=== PATIENT | female | born 1975 | race Hispanic/Latino ===

== ENCOUNTER 2016-09-14 23:19 | Inpatient (IN) | payer MEDICAID, OTHER ==
[2016-09-14 23:19] VITALS: BMI 25.6
--- NOTE | 2016-09-15 00:37 | C.PDOC ---
History Of Present Illness 40 year old female with a Hx of ETOH abuse who presents to the ER stating she has SI. Patient was just [place] [facility] [place] same complaint. Patient is know to psych services and is seen frequently; denies physical complaints at this time. Chief Complaint (Nursing): Psychiatric Evaluation History Per: Patient History/Exam Limitations: no limitations Onset/Duration Of Symptoms: Hrs Current Symptoms Are (Timing): Still Present Suicide/Self Injury Attempted (Context): None Modifying Factor(s): None Associated Symptoms: Suicidal Thoughts. denies: Depression, Suicidal Plan Involuntary Hold By: None Recent travel outside of the [place]: No Past Medical History Reviewed: Historical Data, Nursing Documentation, Vital Signs Vital Signs: Last Vital Signs Temp 99.1 F 09/14/16 23:25 Pulse 83 09/15/16 04:19 Resp 16 09/15/16 04:19 BP 124/76 09/15/16 04:19 Pulse Ox 98 09/15/16 04:19 - Medical History PMH: Anxiety, Bipolar Disorder, Depression, Hepatitis (C, with cirrhosis and liver failure), Personality Disorder Surgical History: Back Surgery (neck abcess) - [facility] Procedures ALCOHOL DETOXIFICATION (08/23/14) DETOXIFICATION SERVICES FOR SUBSTANCE ABUSE TREATMENT (01/15/16) GROUP BRANCH OPERATIONS COORDINATOR FOR SUBSTANCE ABUSE TREATMENT, PSYCHOEDUCATION (01/15/16) INDIV PSYCHOTHERAPY FOR SUBSTANCE ABUSE, BEHAVIORAL (11/20/14) INDIVID PSYCHOTHERAP NEC (06/02/14) INJECT/INFUSE NEC (08/19/14) OTHER GROUP THERAPY (06/02/14) PSYCHIA INTERV/EVAL NEC (09/05/13) PSYCHIAT DRUG THERAP NEC (03/26/12) VACCINATION/INNOCULA NEC (03/26/14) Family History: States: Unknown Family Hx - Social History Hx Tobacco Use: Yes Hx Alcohol Use: Yes Hx Substance Use: No - Immunization History Hx Tetanus Toxoid Vaccination: No Hx Influenza Vaccination: No Hx Pneumococcal Vaccination: No Review Of Systems Constitutional: Negative for: Fever, Chills Gastrointestinal: Negative for: Nausea, Vomiting, Diarrhea Psych: Positive for: Suicidal ideation Physical Exam - Physical Exam Appears: Non-toxic Skin: Normal Color, Warm, Dry Head: Atraumatic, Normacephalic Oral Mucosa: Moist Chest: Symmetrical, No Tenderness Cardiovascular: Rhythm Regular, No Murmur Respiratory: Normal Breath Sounds, No Rales, No Rhonchi, No Wheezing Gastrointestinal/Abdominal: Soft, No Tenderness Neurological/Psych: Oriented x3, Normal Speech, Normal Cognition ED Course And Treatment - Laboratory Results Result Diagrams: 09/15/16 01:01 09/15/16 01:01 ECG: Interpreted By Me, Viewed By Me ECG Rhythm: Sinus Rhythm, 1st Degree HB ECG Interpretation: Normal, No Acute Changes Interpretation Of ECG: NSR with 1ST degree block, normal tracings Rate From EC O2 Sat by Pulse Oximetry: 98 (Room air) Pulse Ox Interpretation: Normal Progress Note: Patient was seen and evaluated by Crisis, she denies suicidal ideation when being assessed by them, 1:1 not needed. ED OBSERVATION Date of observation admission: 09/15/16 Time of observation admission: 00:24 - Observation admission statement Patient is being placed in observation because:: Pending Crisis evaluation in the morning. - Goals of Observation Goals of observation are:: Crisis evaluation Disposition Counseled Patient/Family Regarding: Diagnosis - Disposition Disposition Time: 07:00 Condition: STABLE - Clinical Impression Clinical Impression: Suicidal ideation - Scribe Statement The provider has reviewed the documentation as recorded by the Scribe Marino Rosado All medical record entries made by the Scribe were at my direction and personally dictated by me. I have reviewed the chart and agree that the record accurately reflects my personal performance of the history, physical exam, medical decision making, and the department course for this patient. I have also personally directed, reviewed, and agree with the discharge instructions and disposition.
[2016-09-15 01:16] LABS: ALBUMIN 3.7 g/dL (3.5-5.0); BASO % 0.8 % (0.0-2.0); EOS # 0.2 K/uL (0.0-0.7); EOS % 3.6 % (0.0-4.0); HEMOGLOBIN 10.5 g/dL (11.0-16.0); LYMPH # 2.2 K/uL (1.0-4.3); LYMPH % 42.2 % (20.0-40.0); MEAN CELL VOLUME 87.9 fL (81.0-99.0); MEAN CORPUSCULAR HEMOGLOBIN 28.6 pg (27.0-31.0); MEAN CORPUSCULAR HGB CONC 32.5 g/dL (33.0-37.0); MEAN PLATELET VOLUME 8.5 fL (7.2-11.7); MONO # 0.5 K/uL (0.0-0.8); MONO % 10.5 % (0.0-10.0); NEUT # 2.2 K/uL (1.8-7.0); NEUT % 42.9 % (50.0-75.0); NRBC % 0.1 % (0.0-2.0); RBC 3.68 Mil/uL (3.80-5.20); RED CELL DISTRIBUTION WIDTH 17.9 % (11.5-14.5); WHITE BLOOD COUNT 5.2 K/uL (4.8-10.8)
[2016-09-15 01:18] LABS: GFR AFRICAN-AMERICAN > 60; GFR NON-AFRICAN AMERICAN > 60
[2016-09-15 01:19] LABS: ALB/GLOB RATIO 0.9 (1.0-2.1); ALT/SGPT 72 U/L (9-52); AST/SGOT 86 U/L (14-36); BLOOD UREA NITROGEN 12 mg/dL (7-17); CALCIUM 8.6 mg/dl (8.6-10.4); SQUAMOUS EPITHIAL 34 /hpf (0-5); URINE BACTERIA FEW (<OCC); URINE BILIRUBIN 1+ (NEGATIVE); URINE BLOOD 2+ (NEGATIVE); URINE CLARITY Hazy (Clear); URINE GLUCOSE (UA) NORMAL (Normal); URINE LEUKOCYTE ESTERASE 2+ Leu/uL (Negative); URINE NITRATE NEGATIVE (NEGATIVE); URINE PROTEIN 2+ mg/dL (NEGATIVE)
[2016-09-15 01:23] LABS: URINE COLOR YELLOW (YELLOW)
[2016-09-15 01:44] LABS: BARBITURATES, UR NEGATIVE (NEGATIVE)
[2016-09-15 01:46] LABS: OPIATES, UR NEGATIVE (NEGATIVE)
[2016-09-15 01:47] LABS: PHENCYCLIDINE, UR NEGATIVE (NEGATIVE)
[2016-09-15 01:56] LABS: BENZODIAZEPINES, UR POSITIVE (NEGATIVE)
[2016-09-15] MEDS ORDERED: Potassium Chloride 20 mEq ER Tab PO STA (02:26)
[2016-09-15] MEDS ORDERED: Potassium Chloride 20 mEq ER Tab PO ONE (02:37)
[2016-09-15 11:25] VITALS: O2SAT 97
[2016-09-15] MEDS ORDERED: Pneumococcal 23-Valent Vaccine IM ONE (12:21)
--- NOTE | 2016-09-15 12:38 | PCM.BM ---
<Paradise Goel - Last Filed: 09/15/16 12:36> Treatment Plan Problems - Problems identified on initial assessmt Depression Date Initiated: 09/15/16 Time Initiated: 12:36 Assessment reference: NA Status: Active Alcohol Abuse Date Initiated: 09/15/16 Time Initiated: 12:37 Assessment reference: NA Status: Active Treatment assets and liabiliti Patient Assests: cooperative, ADL independent Patient Liabilities: financial problems, poor support system, substance abuse ( alcohol; benzo) - Milieu Protocol Maintain good personal hygiene: daily Encourage regular showers, daily Assist patient to perform ADL's, every shift Remind patient to perform daily oral care Maintain personal safety: daily Educate patient to report safety concerns to staff, every shift Monitor environment for contraband/sharps Medication safety: Monitor for expected outcome, potential side effects: every shift, Assess barriers to learning: daily, Assess readiness for medication education: daily <Sherice Siegel - Last Filed: 09/17/16 11:29> Family Contact Family involvement: Family/SO is involved Family contact: Patient declines to allow family contact at present - Goals for Treatment Patient goals for treatment: "I need help with my medication." Discharge/Continuing Care - Education Needs Education Needs: Patient Medication, Patient Coping Skills - Discharge Discharge Criteria: Tolerates medication w/o severe side effects, Free of Suicidal thoughts Discharge to:: [facility] - Treatment Team Participation Discussed with Family/SO: Yes Was Patient/Family/SO present at Treatment Team Meeting: No <Francisco Santamaria - Last Filed: 09/17/16 11:34> - Diagnosis (1) Depression Status: Acute Interventions: 09/17/16 11:34 Attend groups take meds (2) Alcohol use disorder, severe, dependence Status: Acute Interventions: 09/17/16 11:35 Attend groups Take meds <Glen Torres - Last Filed: 09/17/16 12:12>
--- NOTE | 2016-09-15 19:13 | PCM.PSYCH ---
Initial Psychiatric Evaluation - Initial Psychiatric Evaluation Type of Admission: Voluntary Chief Complaint (in patient's own words): I/m depressed and have suicidal thoughts Patient's Reaction to Hospitalization: Pt reported that she is feeling safe History of Present Illness and Precipitating Events: This is 40 year old female with psychiatric history of depression and alcohol abuse. She was admitted to the unit for worsening of her depression for last 2 weeks. Ms. Vivas stated that she had depressed mood for more than 3 weeks and it is 7/10 on the scale of depression associated with financial stressor, and homeless issues, low self esteem, and low level of energy. She reported that she was thinking to commit suicide by jumping into river, but does not want to do it because she is afraid of . she reported that had relapse on drinking vodka around 3 weeks ago. CAGE questionaire was positive. Presently although she reported etoh withdrawal symptoms such as shakiness, sweating, heart racing , sweating, etc. She denied any seizures associated or head injury, but her vitals are stables and not tremors were observed. She denied manic symptoms. She denied perceptual disturbances. She denied anxiety symptoms. She reported that she is feeling safe in the hospital and improvement in suicidal ideation. She denied any HI. She denied AVH, Paranoid delusion. Labs reviewed and chart reviewed. Current Medications: Active Medications Generic Name Dose Route Start Last Admin Trade Name Freq PRN Reason Stop Dose Admin Fluoxetine HCl 10 mg 09/16/16 10:00 Prozac PO DAILY SCOTT Folic Acid 1 mg 09/16/16 10:00 Folic Acid PO DAILY SCOTT Gabapentin 100 mg 09/16/16 10:00 Neurontin PO TID SCOTT Hydroxyzine HCl 25 mg 09/15/16 19:01 Atarax PO Q6H PRN Anxiety Lorazepam 2 mg 09/15/16 18:59 Ativan PO Q6H PRN for alcohol withdrawal Multivitamins 1 tab 09/16/16 10:00 Hexavitamin PO DAILY SCOTT Thiamine HCl 100 mg 09/16/16 10:00 Vitamin B1 Tab PO DAILY SCOTT Trazodone HCl 50 mg 09/15/16 18:47 Desyrel PO HS PRN Insomnia Past Psychiatric History - Past Psychiatric History Previous Treatment History: Inpatient (multiple admission in the past) [facility] Duration: varies from days to weeks in different hospital Nature of Treatment: mediccation management for depression and alcohol History of Abuse: denied History of ETOH/Drug Use: She reported that she start drinking etoh at the age of 21. she had 1 1/2 year of severity. She was drinking Vodka 5 pint daily for 2 weeks. CAGE questionnaire was positive. She want to detox. She denied using other drugs. History of Family Illness: Mother, aunt and sister diagnosed with depression Pertinent Medical Hx (Current Medical&Sleep Prob, Allergies): Allergies Allergy/AdvReac Type Severity Reaction Status Date / Time acetaminophen [From Tylenol] AdvReac RASH Verified 09/14/16 23:36 traZODone [Desyrel] 200 mg PO HS PRN #60 tab 01/06/16 Fluoxetine HCl [Prozac] 80 mg PO DAILY 09/14/16 Gabapentin [Neurontin] 600 mg PO TID 09/14/16 Lorazepam [Ativan] 2 mg PO Q6H PRN 09/14/16 She reported that she had cirrhosis, Hep C and pancreatitis Review of Systems - Review of Systems All systems: reviewed and no additional remarkable complaints except ( psychiatric c/o. Please see HPI) - Constitutional Constitutional: Other (none reported ) - Psychiatric Psychiatric: Abnormal Sleep Pattern, Change in Appetite, Depression, Suicidal Ideation Mental Status Examination - Personal Presentation Personal Presentation: Looks stated age, Dressed appropriate to season, No apparent handicaps - Affect Affect: Constricted - Motor Activity Motor Activity: Calm - Reliability in Providing Information Reliability in Providing Information: Fair - Speech Speech: Organized, Other (coherent and normal rate and volume) - Mood Mood: Depressed - Formal Thought Process Formal Thought Process: No Impairment - Hallucinations/Delusions Hallucinations: Other (Denied avh) Delusions: Other (denied) - Obsessions/Compulsions Obsessions: No Compulsions: No - Cognitive Functions Orientation: Person, Place, Situation, Time Sensorium: Alert Attention/Concentration: Attentive Abstract Thinking: Lynd Estimate of Intelligence: Average Judgement: Intact, as evidence by: Good judgement, Intact, as evidence by: Insight regarding need for hospitalization Memory: Recent intact, as evidence by: Ability to recall events of the day - Risk Risk: Other (None, pt is feeling safe after admittion in the hospital) DSM 5 DX - DSM 5 DSM 5 Diagnosis: Major Depressive disorder, 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 Start Trazodone 50 mg po QHS prn for sleep. Start Prozac 10 mg po daily for depression. Will titrate according to her response. Start Ativan 1 mg po Q6hr prn for alcohol withdrawal symptoms. Start Atrax 25 mg po prn for anxiety. Start Neurontin for neuroathic pain in the legs and anxiety. Start MV, Thiamine, Folic acid daily. Monitor vitals as per floor protocol Medication benefits and side effects were in detail. He verbalized understanding and in agreement with the plan. Therapy in milieu Pt was encouraged to attend groups Projected ELOS: 5-6 days Prognosis: guarded to fair Discharge Plan and Discharge Criteria: TBD - Smoking Cessation Smoking Cessation Initiated: No Reason for not providing: n/a
[2016-09-16] MEDS: Multiple Vitamins Tab PO SCH (09:20)
--- NOTE | 2016-09-16 16:07 | PCM.PYCHPN ---
Psychiatric Progress Note - Psychiatric Progress Note Patient seen today, length of contact: 17 minutes Patient Chief Complaint: "I'm feeling little better." Problems Identified/Issues Discussed: Pt was seen and evaluated. Chart reviewed. Nurse input received. She reported she is feeling better, because she had stop crying, took shower today. She reproted that she had a good sleep last night. She inquired about why her medication was started on low dosage. This marine underwriter explained that she was out of meds for couple of days Her vitals and symptoms will be monitored and medication will be titrated to according to her response. She was in agreement with the plan. Medication benefits, s/e were discussed in detail and she was in agreement with current treatment plan. She denied any issues with sleep. She denied SI, HI, intent or plan. She denied A/V/H. She denied withdrawal symptoms. Medical Problems: please see initial assessment note Medication Change: Yes (decrease Ativan prn to 1 mg po TID for agitation and etoh withdrawal sx. ) Medical Record Reviewed: Yes Mental Status Examination - Cognitive Function Orientation: Person, Place, Situation, Time Memory: Intact, Recent Attention: WNL Concentration: WNL Association: [facility] Fund of Knowledge: [facility] Decription of patient's judgement and insights: Limited /Limited - Mood Mood: Depressed Additional comments: "I feel little better" - Affect Affect: Constricted - Speech Speech: Appropriate, Soft - Formal Thought Process Formal Thought Process: No Impairment, Other (goal directed and medication seeking behavior) Additional comments: None reported and she was also not appeared internally preoccupied or responding to stimuli. - Suicidal Ideation Suicidal Ideation: No - Homicidal Ideation Homicidal Ideation: No Goal/Treatment Plan - Goal/Treatment Plan Need for Continued Stay: Discharge may exacerbated symptoms Progress Toward Problem(s) and Goals/Treatment Plan: Continue. Trazodone 50 mg po QHS prn for sleep. Prozac 10 mg po daily for depression. Will titrate according to her response. Ativan 1 mg po TID prn for alcohol withdrawal symptoms and agitation. Presently she is not exhibiting etoh withdrawal symptoms. Continue Atrax 25 mg po prn for anxiety. continue Neurontin for neuroathic pain in the legs and anxiety. Continue MV, Thiamine, Folic acid daily. Monitor vitals as per floor protocol Medication benefits and side effects were in detail. He verbalized understanding and in agreement with the plan. Therapy in milieu Pt was encouraged to attend groups Estimated Date of D/C: 09/21/16 - Smoking Cessation Smoking Cessation Initiated: No Reason for not providing: She denied smoking cigarette
[2016-09-17] MEDS: Multiple Vitamins Tab PO SCH (10:07)
--- NOTE | 2016-09-17 13:46 | PCM.PYCHPN ---
Psychiatric Progress Note - Psychiatric Progress Note Patient seen today, length of contact: 15 minutes Patient Chief Complaint: I am feeling depressed. Problems Identified/Issues Discussed: Patient seen and evaluated, chart reviewed and discussed with the nurse. Patient reports a bit improvement in her mood but still reports depressed mood and feelings of hopelessness and helplessness. However she denies any auditory or visual hallucinations. She is taking medication and denied any side effects. She need some time for stabilization. Supportive therapy and psychoeducation were given. Medication Change: Yes (decrease Ativan prn to 1 mg po TID for agitation and etoh withdrawal sx. ) Medical Record Reviewed: Yes Mental Status Examination - Cognitive Function Orientation: Person, Place, Situation, Time Memory: Intact, Recent Attention: WNL Concentration: Poor Association: WNL Fund of Knowledge: Poor - Mood Mood: Depressed, Anxious - Affect Affect: Constricted - Speech Speech: Appropriate, Soft - Formal Thought Process Formal Thought Process: No Impairment, Other (goal directed and medication seeking behavior) - Suicidal Ideation Suicidal Ideation: No - Homicidal Ideation Homicidal Ideation: No Goal/Treatment Plan - Goal/Treatment Plan Need for Continued Stay: Remain at risks for inpatient hospitalization, Discharge may exacerbated symptoms Progress Toward Problem(s) and Goals/Treatment Plan: Major Depressive disorder, 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 Prozac 10 mg po daily for depression. Alcohol use disorder Severe CBT Psychoeducation Supportive therapy, individual therapy Ativan 1 mg po Q6hr prn for alcohol withdrawal symptoms. Alcohol withdrawal CBT Psychoeducation Supportive therapy, individual therapy Ativan 1 mg po Q6hr prn for alcohol withdrawal symptoms. Neurontin for neuroathic pain in the legs and anxiety. MVI, Thiamine, Folic acid Estimated Date of D/C: 09/21/16 - Smoking Cessation Smoking Cessation Initiated: No
[2016-09-17] MEDS: Aluminum Hydroxide/Magnesium Hydroxide Susp (30 mL) PO PRN (21:07)
[2016-09-18] MEDS: Multiple Vitamins Tab PO SCH (09:44)
--- NOTE | 2016-09-18 10:12 | PCM.PYCHPN ---
Psychiatric Progress Note - Psychiatric Progress Note Patient seen today, length of contact: 17 minutes Patient Chief Complaint: I am still feeling irritable.' Problems Identified/Issues Discussed: Patient seen and evaluated, chart reviewed and discussed with the nurse. Patient still reports depressed mood and feelings of hopelessness and helplessness. Patient was reported to have used the bathroom last night without wearing underpants and only a shirt. She reports withdrawals symptoms for example anxiety and sweating. When asked to wear underpants, she pulled her shirt down. Patient denies any suicidal or racing thoughts today. However she denies any auditory or visual hallucinations. She is taking medication and denied any side effects. She need some time for stabilization. Supportive therapy and psychoeducation were given. Medication Change: Yes (Increase Trazodone, increase prozac) Medical Record Reviewed: Yes Mental Status Examination - Cognitive Function Orientation: Person, Place, Situation, Time Memory: Intact, Recent Attention: WNL Concentration: Poor Association: WNL Fund of Knowledge: Poor - Mood Mood: Depressed, Anxious - Affect Affect: Constricted, Depressed - Speech Speech: Appropriate, Soft - Formal Thought Process Formal Thought Process: No Impairment, Other (goal directed and medication seeking behavior) - Suicidal Ideation Suicidal Ideation: No - Homicidal Ideation Homicidal Ideation: No Goal/Treatment Plan - Goal/Treatment Plan Need for Continued Stay: Remain at risks for inpatient hospitalization, Discharge may exacerbated symptoms Progress Toward Problem(s) and Goals/Treatment Plan: Major Depressive disorder, 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 Prozac 40 mg po daily for depression. Neurontin 300 mg po TID Alcohol use disorder Severe CBT Psychoeducation Supportive therapy, individual therapy Ativan 1 mg po Q6hr prn for alcohol withdrawal symptoms. Alcohol withdrawal CBT Psychoeducation Supportive therapy, individual therapy Ativan 1 mg po Q6hr prn for alcohol withdrawal symptoms. MVI, Thiamine, Folic acid Estimated Date of D/C: 09/21/16 - Smoking Cessation Smoking Cessation Initiated: No
--- NOTE | 2016-09-18 12:42 | CARD ---
APPROVED REPORT EKG Measurement Heart [id number] <Conclusion> Sinus rhythm with sinus arrhythmia with 1st degree AV block Otherwise normal ECG
[2016-09-18] MEDS: Aluminum Hydroxide/Magnesium Hydroxide Susp (30 mL) PO PRN (21:14)
[2016-09-19] MEDS: Multiple Vitamins Tab PO SCH (09:50)
--- NOTE | 2016-09-19 14:19 | PCM.PYCHPN ---
Psychiatric Progress Note - Psychiatric Progress Note Patient seen today, length of contact: 17 minutes Patient Chief Complaint: I am still feeling irritable.' Problems Identified/Issues Discussed: Patient seen and evaluated, chart reviewed and discussed with the nurse. Patient still reports depressed mood and feelings of hopelessness and helplessness. Patient was reported to have used the bathroom last night without wearing underpants and only a shirt. She reports withdrawals symptoms for example anxiety and sweating. When asked to wear underpants, she pulled her shirt down. Patient denies any suicidal or racing thoughts today. However she denies any auditory or visual hallucinations. She is taking medication and denied any side effects. She need some time for stabilization. Supportive therapy and psychoeducation were given. Medication Change: Yes (Increase Trazodone, increase prozac) Medical Record Reviewed: Yes Mental Status Examination - Cognitive Function Orientation: Person, Place, Situation, Time Memory: Intact, Recent Attention: WNL Concentration: Poor Association: WNL Fund of Knowledge: Poor - Mood Mood: Depressed, Anxious - Affect Affect: Constricted, Depressed - Speech Speech: Appropriate, Soft - Formal Thought Process Formal Thought Process: No Impairment, Other (goal directed and medication seeking behavior) - Suicidal Ideation Suicidal Ideation: No - Homicidal Ideation Homicidal Ideation: No Goal/Treatment Plan - Goal/Treatment Plan Need for Continued Stay: Remain at risks for inpatient hospitalization, Discharge may exacerbated symptoms Progress Toward Problem(s) and Goals/Treatment Plan: Major Depressive disorder, 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 Prozac 80 mg po daily for depression. Neurontin 400 mg po TID Alcohol use disorder Severe CBT Psychoeducation Supportive therapy, individual therapy Ativan 1 mg po Q6hr prn for alcohol withdrawal symptoms. Alcohol withdrawal CBT Psychoeducation Supportive therapy, individual therapy Ativan 1 mg po Q6hr prn for alcohol withdrawal symptoms. MVI, Thiamine, Folic acid Estimated Date of D/C: 09/21/16
[2016-09-20] MEDS: Multiple Vitamins Tab PO SCH (09:42)
--- NOTE | 2016-09-20 10:05 | PCM.PYCHPN ---
Psychiatric Progress Note - Psychiatric Progress Note Patient seen today, length of contact: 15 minutes Patient Chief Complaint: I am feeling better.' Problems Identified/Issues Discussed: Patient seen and evaluated, chart reviewed and discussed with the nurse. Today pt reports improvement in her mood and improvement in her withdrawal symptoms. However, she is still reporting anxiety and irritability. She has started attending groups and meetings. She is taking medication and denies any side effects. She need more time for stabilization. Supportive therapy and psychoeducation were given. Medication Change: Yes (Increase neurontin) Medical Record Reviewed: Yes Mental Status Examination - Cognitive Function Orientation: Person, Place, Situation, Time Memory: Intact, Recent Attention: WNL Concentration: Poor Association: WNL Fund of Knowledge: Poor - Mood Mood: Depressed, Anxious - Affect Affect: Constricted, Depressed - Speech Speech: Appropriate, Soft - Formal Thought Process Formal Thought Process: No Impairment, Other (goal directed and medication seeking behavior) - Suicidal Ideation Suicidal Ideation: No - Homicidal Ideation Homicidal Ideation: No Goal/Treatment Plan - Goal/Treatment Plan Need for Continued Stay: Remain at risks for inpatient hospitalization, Discharge may exacerbated symptoms Progress Toward Problem(s) and Goals/Treatment Plan: Major Depressive disorder, 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 Prozac 80 mg po daily for depression. Neurontin 600 mg po TID Alcohol use disorder Severe CBT Psychoeducation Supportive therapy, individual therapy Ativan 1 mg po Q6hr prn for alcohol withdrawal symptoms. Alcohol withdrawal CBT Psychoeducation Supportive therapy, individual therapy Ativan 1 mg po Q6hr prn for alcohol withdrawal symptoms. MVI, Thiamine, Folic acid Estimated Date of D/C: 09/21/16 - Smoking Cessation Smoking Cessation Initiated: No
[2016-09-21 09:12] VITALS: BP 107/71; PULSE 67; RESP 19; TEMP 97.6
[2016-09-21] MEDS: Multiple Vitamins Tab PO SCH (10:16)
--- NOTE | 2016-09-21 10:34 | PCM.PYCHDC ---
Mental Status Examination - Mental Status Examination Orientation: Person, Place, Situation, Time Memory: Intact Mood: Neutral Affect: Constricted Speech: Soft Attention: WNL Concentration: WNL Association: WNL Fund of Knowledge: WNL Formal Thought Process: No Impairment Description of patient's judgement and insight: good, fair Psychotic Thoughts and Behaviors: denies any AVH Suicidal Ideation: No Current Homicidal Ideation?: No Discharge Summary - Discharge Note Reason for Hospitalization: This is 40 year old female with psychiatric history of depression and alcohol abuse. She was admitted to the unit for worsening of her depression for last 2 weeks. Ms. Vivas stated that she had depressed mood for more than 3 weeks and it is 7/10 on the scale of depression associated with financial stressor, and homeless issues, low self esteem, and low level of energy. She reported that she was thinking to commit suicide by jumping into river, but does not want to do it because she is afraid of . she reported that had relapse on drinking vodka around 3 weeks ago. CAGE questionaire was positive. Presently although she reported etoh withdrawal symptoms such as shakiness, sweating, heart racing , sweating, etc. She denied any seizures associated or head injury, but her vitals are stables and not tremors were observed. She denied manic symptoms. She denied perceptual disturbances. She denied anxiety symptoms. She reported that she is feeling safe in the hospital and improvement in suicidal ideation. She denied any HI. She denied AVH, Paranoid delusion. Psychiatric History (includes Medical, Family, Personal Hx): mediccation management for depression and alcohol Consultations:: List each consultation separately and include: 1. Reason for request. 2. Findings. 3. Follow-up Summary of Hospital Course include:: 1. Description of specific treatment plan utilized for patients during their course of treatmen. 2. Summarize the time- course for resolution of acute symptoms and/or regressed behaviors. 3. Describe issues identified and worked on during hospitalization. 4. Describe medication utilized. 5. Describe medical problems identified and treated. 6. Reassessment of suicide risk Summary of Hospital Course: During the course of her stay, patient (pt) started progressively improving and she no longer remained anxious and irritable. She tolerated the medications and denied any side effects. She started attending groups and meetings and started socializing. She denied any feelings of hopelessness, helplessness, and worthlessness, denied any problem with the sleep or appetite, denied suicidal ideation or homicidal ideation. Pt denied any auditory or visual hallucinations. Patient remained calm and cooperative and remained compliant with the medications. Patient tolerated the detox medications very well and denied any side effects. 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 Pt was educated and counseled about the risks of drinking and abusing drugs. Pt was educated and counseled to go to the ER or call 911 if pt develop suicidal ideation or homicidal ideation, worsening of symptoms or severe side effects of the meds. Prescriptions/Medication Reconciliation: FLUoxetine [Prozac] 80 mg PO DAILY #30 cap Gabapentin [Neurontin] 600 mg PO TID #90 cap traZODone [Desyrel] 100 mg PO HS #60 tab - Smoking Cessation Smoking Cessation Medication prescribed: No - Antipsychotic Medications Pt discharged on 2 or more routine antipsychotic medications: No
== END 2016-09-21 11:45 | disposition home or self-care (01) | DRG 430 ==
LOC: C.ER 23:19 → C.9OBSV 09-15 03:04 → OBSVTOIN 09-15 10:15 → C.9E 09-15 10:17 → C.5E 09-15 11:19
PROVIDERS: ADMIT Emergency Medicine; ATTEND Psychiatry & Neurology Psychiatry
PROC: HZ2ZZZZ Detoxification Services for Substance Abuse Treatment (ICD-10-PCS; principal; 2016-09-17)
PROC: HZ56ZZZ Individual Psychotherapy for Substance Abuse Treatment, Psychoeducation (ICD-10-PCS; 2016-09-17)
PROC: HZ59ZZZ Individual Psychotherapy for Substance Abuse Treatment, Supportive (ICD-10-PCS; 2016-09-17)
PROC: HZ52ZZZ Individual Psychotherapy for Substance Abuse Treatment, Cognitive-Behavioral (ICD-10-PCS; 2016-09-17)
DX: F33.9 Major depressive disorder, recurrent, unspecified (principal); R45.851 Suicidal ideations; K70.30 Alcoholic cirrhosis of liver without ascites; B19.20 Unspecified viral hepatitis C without hepatic coma; F10.288 Alcohol dependence with other alcohol-induced disorder; Y90.0 Blood alcohol level of less than 20 mg/100 ml; Z59.0 Homelessness

== ENCOUNTER 2016-09-25 06:12 | Emergency (ER) | payer MEDICAID, OTHER | END 2016-09-25 21:40 | disposition short-term general hospital (02) | LOC: C.ER 06:12 | CPT/HCPCS: 71020; 80053; 81001; 84703; 85025; 87070; 87430; 93005; 99285; G0480 ==